=== PATIENT | female | born 1930 | race Caucasian/White ===

== ENCOUNTER 2017-08-27 19:28 | Emergency (ER) | payer MEDICARE, OTHER ==
[~2017-08-27 19:28] MED LIST: Donnatal Elixir 16.2 MG/5 ML UDCUP ONE
[2017-08-27] MEDS ORDERED: Donnatal Elixir 16.2 MG/5 ML UDCUP ONE (20:12)
[2017-08-27] MEDS ORDERED: Mag-Al Plus 1200 MG/1200 MG/120 MG/30 ML UDCUP ONE (20:12)
[2017-08-27] MEDS ORDERED: Lidocaine Viscous Sol 2% 15 ml UD Cup ONE (20:12)
[2017-08-27] MEDS ORDERED: Ondansetron HCl/PF 4 MG/2 ML Vial ONE (20:12)
[2017-08-27 20:17] LABS: #Basophils 0.1 thou/uL (0.0-0.2); #Eosinphils 0.1 thou/uL (0.0-0.7); #Lymphocytes 1.7 thou/uL (1.20-3.40); #Monocytes 0.6 thou/uL (0.11-0.59); #Neutrophils 4.8 thou/uL (1.40-6.50); %Basophils 1.5 % (0.0-1.0); %Lymphocytes 23.4 % (21.0-51.0); %Monocytes 8.1 % (0.0-10.0); %Neutrophils 65.9 % (42.0-75.0); Hemoglobin 12.6 g/dL (12.0-16.0); Mean Corpuscular HGB CONC 33.2 g/dL (32.0-36.0); Mean Corpuscular Hemoglobin 30.4 pg (27.0-31.0); Mean Corpuscular Volume 91.6 fl (81.0-99.0); Mean Platelet Volume 7.8 fL (7.4-10.4); Platelet Count 207 thou/uL (130-400); Red Blood Cell (RBC) Count 4.14 mill/uL (4.20-5.40); White Blood Cell (WBC) Count 7.2 thou/uL (4.8-10.8)
--- NOTE | 2017-08-27 20:19 | RAD ---
EXAM: ONE VIEW CHEST 08/27/17 COMPARISON: 07/24/16, 09/13/16 HISTORY: Chest pain. FINDINGS: There are sternotomy wires. Atherosclerosis of the aorta. Normal cardiac silhouette. Pulmonary vesse ls and hilum are normal. Costophrenic angles are clear. Hyperinflation, without consolidation or mas s. No pneumothorax or osseous abnormalities. IMPRESSION: 1. No acute cardiopulmonary process. 2. Hyperinflation. 3. Atherosclerosis. POS: [facility]
[2017-08-27 20:27] LABS: PTT 24.5 SEC (22.9-36.1); Prothrombin Time 13.4 SEC (12.0-14.7)
[2017-08-27 20:38] LABS: ALT (SGPT) 19 U/L (8-55); AST (SGOT) 26 U/L (5-34); Albumin 3.9 g/dL (3.4-4.8); Alkaline Phosphatase 79 U/L (40-150); Anion Gap 17 mmol/L (10-20); BUN (Urea Nitrogen) 25 mg/dL (9.8-20.1); Bilirubin, Total 0.3 mg/dL (0.2-1.2); CK (CPK) 31 U/L (29-168); Calc. Creatinine Clearance 0 mL/min (70-130); Calcium 8.8 mg/dL (7.8-10.44); Carbon Dioxide 24 mmol/L (23-31); Chloride 103 mmol/L (98-107); Estimated GFR-MDRD 61; Glucose 138 mg/dL (83-110); Magnesium 2.5 mg/dL (1.6-2.6); Potassium 4.5 mmol/L (3.5-5.1); Protein, Total 6.9 g/dL (6.0-8.3); Sodium 139 mmol/L (136-145)
[2017-08-27 20:39] LABS: CKMB 1.2 ng/mL (0-6.6); Troponin I 0.011 ng/mL (< 0.028)
[2017-08-27 20:50] LABS: Bacteria/HPF None Seen HPF (None Seen); Bilirubin Negative (Negative); Blood, Urine Negative (Negative); Clarity Clear (Clear); Glucose, Urine (Dipstick) Negative (Negative); Leukocyte Negative (Negative); Nitrite Negative (Negative); Protein, Urine (Dipstick) Negative (Neg-Trace); RBC/HPF 0-3 HPF (0-3); Squamous Epithelial None Seen HPF (0-3); Urobilinogen 0.2 mg/dL (0.2-1.0); WBC/HPF None Seen HPF (0-3); pH, Urine 6.5 (5.0-9.0)
[2017-08-27] MEDS ORDERED: Lorazepam 2 MG/ML VIAL ONE (21:44)
[2017-08-27] MEDS ORDERED: Pantoprazole 40 MG VIAL ONE (21:50)
[2017-08-27] MEDS ORDERED: Ondansetron ODT 4 MG TAB ONE (22:27)
== END 2017-08-27 22:01 | disposition home or self-care (01) ==
LOC: MADERS 19:28
DX: K21.0 Gastro-esophageal reflux disease with esophagitis (principal); F41.9 Anxiety disorder, unspecified; E78.5 Hyperlipidemia, unspecified; G30.9 Alzheimer's disease, unspecified; F02.80 Dementia in other diseases classified elsewhere, unspecified severity, without behavioral disturbance, psychotic disturbance, mood disturbance, and anxiety; G45.9 Transient cerebral ischemic attack, unspecified; J45.909 Unspecified asthma, uncomplicated; E78.2 Mixed hyperlipidemia; I10 Essential (primary) hypertension; Z79.899 Other long term (current) drug therapy; Z79.82 Long term (current) use of aspirin
CPT/HCPCS: 71010; 80053; 81001; 82550; 82553; 83735; 83880; 84484; 85025; 85610; 85730; 87086; 93005; 94760; 96374; 96375; C9113; J2060; J2405; Q0162

== ENCOUNTER 2017-12-12 18:53 | Emergency (ER) | payer MEDICARE, OTHER ==
[2017-12-12 20:13] LABS: Bilirubin Negative (Negative); Blood, Urine Trace (Negative); Clarity Clear (Clear); Glucose, Urine (Dipstick) Negative (Negative); Leukocyte Negative (Negative); Nitrite Negative (Negative); Protein, Urine (Dipstick) Negative (Neg-Trace); Urobilinogen 0.2 mg/dL (0.2-1.0); pH, Urine 5.5 (5.0-9.0)
[2017-12-12 20:14] LABS: Eosinophils 4 % (0-10); Hemoglobin 13.4 g/dL (12.0-16.0); Lymphocytes 25 % (21-51); MDiff Complete? YES; Mean Corpuscular HGB CONC 31.9 g/dL (32.0-36.0); Mean Platelet Volume 7.7 fL (7.4-10.4); Monocytes 4 % (0-10); Neutrophil 67 % (42-75); PLT Morphology Comment Appears Adequate; Platelet Count 152 thou/uL (130-400); RBC Distribution Width 12.2 % (11.5-14.5); Red Blood Cell (RBC) Count 4.47 mill/uL (4.20-5.40); White Blood Cell (WBC) Count 6.6 thou/uL (4.8-10.8)
[2017-12-12 20:15] LABS: ALT (SGPT) 13 U/L (8-55); AST (SGOT) 18 U/L (5-34); Albumin 3.8 g/dL (3.4-4.8); Alkaline Phosphatase 81 U/L (40-150); Anion Gap 19 mmol/L (10-20); BUN (Urea Nitrogen) 12 mg/dL (9.8-20.1); Bilirubin, Total 0.4 mg/dL (0.2-1.2); Calc. Creatinine Clearance 0 mL/min (70-130); Calcium 9.4 mg/dL (7.8-10.44); Carbon Dioxide 24 mmol/L (23-31); Chloride 102 mmol/L (98-107); Estimated GFR-MDRD 58; Globulin 2.9 g/dL (2.4-3.5); Glucose 104 mg/dL (83-110); Lipase 12 U/L (8-78); Potassium 3.9 mmol/L (3.5-5.1); Protein, Total 6.7 g/dL (6.0-8.3); Sodium 141 mmol/L (136-145)
[2017-12-12 20:16] LABS: Bacteria/HPF Rare-Few HPF (None Seen); RBC/HPF 0-3 HPF (0-3); Squamous Epithelial 0-3 HPF (0-3); WBC/HPF None Seen HPF (0-3)
[2017-12-12 20:17] LABS: CKMB 0.9 ng/mL (0-6.6); Troponin I Less than 0.010 ng/mL (< 0.028)
[2017-12-12 20:32] LABS: INR-International Normal Ratio 0.9; Prothrombin Time 12.7 SEC (12.0-14.7)
--- NOTE | 2017-12-12 20:34 | RAD ---
PORTABLE AP CHEST RADIOGRAPH: Date: 12-12-17 History: Pain under right breast for four days. Comparison: 08-27-17 FINDINGS: Post-surgical changes related to median sternotomy are again present. Lungs are hyperexpanded. There is evidence of prior granulomatous disease. Lungs are otherwise clear. Vascular calcification is seen in the thoracic aorta. Chest is unchanged from prior exam. IMPRESSION: Stable chest without evidence of an acute cardiopulmonary process. POS: [facility]
--- NOTE | 2017-12-13 07:26 | CT ---
NONCONTRAST CT ABDOMEN AND PELVIS: DATE: 12/15/17. HISTORY: Right lower quadrant abdominal pain. COMPARISON: None available. FINDINGS: There is partial visualization of median sternotomy wires. Vascular calcifications are seen in the abdominal aorta and involving the iliac arteries. The lung bases are clear. Degenerative changes are present in the spine. There is an 11 mm low-density lesion in the superior pole left kidney which is difficult to further c haracterize on this nonenhanced CT scan exam. No renal or ureteral calculi are seen bilaterally, and there is no evidence of hydronephrosis. Urinary bladder is distended and has a normal nonenhanced C T appearance. Splenic granulomata are present. The liver, pancreas, and bilateral adrenal glands demonstrate a grossly normal nonenhanced CT appeara nce. There is increased density seen in a few distal loops of small bowel probably related to ingested mat erial. The appendix is not visualized on this examination, but no secondary signs are seen to suggest append icitis. A few colonic diverticula are seen. No free fluid or fluid collection is seen in the abdomen or pelvis. Heterotopic ossification is seen medial to the proximal left femur. IMPRESSION: 1. Difficult to characterize 11 mm hypodense lesion superior pole left kidney. Nonemergent renal ul trasound may be helpful for further characterization. 2. No renal or ureteral calculi are seen bilaterally, and there is no hydronephrosis. 3. The appendix is not visualized, but there are no secondary signs to suggest appendicitis. POS: [facility]
== END 2017-12-12 21:45 | disposition home or self-care (01) ==
LOC: MADERS 18:53
DX: N28.9 Disorder of kidney and ureter, unspecified (principal); K21.9 Gastro-esophageal reflux disease without esophagitis; E78.5 Hyperlipidemia, unspecified; G30.9 Alzheimer's disease, unspecified; F02.80 Dementia in other diseases classified elsewhere, unspecified severity, without behavioral disturbance, psychotic disturbance, mood disturbance, and anxiety; E78.1 Pure hyperglyceridemia; F41.9 Anxiety disorder, unspecified; F32.9 Major depressive disorder, single episode, unspecified; Z86.73 Personal history of transient ischemic attack (TIA), and cerebral infarction without residual deficits
CPT/HCPCS: 36415; 51701; 71045; 74176; 80053; 81003; 81015; 82553; 83690; 84484; 85025; 85610; 85730; 93005; 94760; A4353

== ENCOUNTER 2017-12-14 15:31 | Emergency (ER) | payer MEDICARE, OTHER ==
--- NOTE | 2017-12-14 15:52 | CT ---
CT HEAD NONCONTRAST 12/14/17 HISTORY: Weakness. Location not distinguished. FINDINGS: There is no evidence of acute intracranial hemorrhage or infarct. Mild chronic ischemic small vessel disease and diffuse cortical atrophy are again demonstrated There is no mass effect or shift of midli ne structures. Ventricles appear normal in size, shape and position. IMPRESSION: Chronic type findings are stable. No acute intracranial abnormalities are demonstrated on noncontrast CT head. POS: [facility]
[2017-12-14 15:59] LABS: #Basophils 0.1 thou/uL (0.0-0.2); #Eosinphils 0.1 thou/uL (0.0-0.7); #Lymphocytes 1.2 thou/uL (1.20-3.40); #Monocytes 0.8 thou/uL (0.11-0.59); #Neutrophils 6.4 thou/uL (1.40-6.50); %Basophils 1.1 % (0.0-1.0); %Eosinophils 1.6 % (0.0-10.0); %Lymphocytes 13.9 % (21.0-51.0); %Neutrophils 74.5 % (42.0-75.0); Hemoglobin 13.8 g/dL (12.0-16.0); Mean Corpuscular HGB CONC 31.6 g/dL (32.0-36.0); Mean Corpuscular Hemoglobin 29.8 pg (27.0-31.0); Mean Corpuscular Volume 94.4 fl (81.0-99.0); Mean Platelet Volume 7.7 fL (7.4-10.4); Platelet Count 217 thou/uL (130-400); RBC Distribution Width 12.7 % (11.5-14.5); Red Blood Cell (RBC) Count 4.64 mill/uL (4.20-5.40); White Blood Cell (WBC) Count 8.6 thou/uL (4.8-10.8)
[2017-12-14 16:21] LABS: ALT (SGPT) 12 U/L (8-55); AST (SGOT) 17 U/L (5-34); Albumin 3.6 g/dL (3.4-4.8); Alkaline Phosphatase 82 U/L (40-150); Anion Gap 15 mmol/L (10-20); BUN (Urea Nitrogen) 13 mg/dL (9.8-20.1); Bilirubin, Total 0.3 mg/dL (0.2-1.2); Calc. Creatinine Clearance 0 mL/min (70-130); Calcium 9.1 mg/dL (7.8-10.44); Carbon Dioxide 25 mmol/L (23-31); Chloride 106 mmol/L (98-107); Estimated GFR-MDRD 58; Globulin 2.9 g/dL (2.4-3.5); Glucose 141 mg/dL (83-110); Potassium 4.3 mmol/L (3.5-5.1); Protein, Total 6.5 g/dL (6.0-8.3); Sodium 142 mmol/L (136-145)
[2017-12-14 16:29] LABS: CKMB 1.2 ng/mL (0-6.6)
[2017-12-14 16:30] LABS: Troponin I Less than 0.010 ng/mL (< 0.028)
[2017-12-14] MEDS ORDERED: Aspirin 325 MG TAB ONE (16:40)
== END 2017-12-14 17:13 | disposition short-term general hospital (02) ==
LOC: MADERS 15:31
DX: R53.1 Weakness (principal); K21.9 Gastro-esophageal reflux disease without esophagitis; I10 Essential (primary) hypertension; G30.9 Alzheimer's disease, unspecified; F02.80 Dementia in other diseases classified elsewhere, unspecified severity, without behavioral disturbance, psychotic disturbance, mood disturbance, and anxiety; E78.5 Hyperlipidemia, unspecified; E78.1 Pure hyperglyceridemia; F41.9 Anxiety disorder, unspecified; F32.9 Major depressive disorder, single episode, unspecified; Z86.73 Personal history of transient ischemic attack (TIA), and cerebral infarction without residual deficits
CPT/HCPCS: 36415; 36416; 70450; 80053; 82553; 84484; 85025; 93005; 94760

== ENCOUNTER 2017-12-19 21:54 | Inpatient (IN) | payer MEDICARE ==
[2017-12-19] MEDS ORDERED: Pantoprazole 40 MG VIAL ONE (22:11)
--- NOTE | 2017-12-19 22:45 | RAD ---
PORTABLE CHEST: Date: 12-19-17 Provided Clinical History: Altered mental status. Comparison: 12-12-17 FINDINGS: Cardiac and mediastinal silhouette is unchanged in appearance. Median sternotomy changes are again se en. No focal consolidation, pleural fluid, or pneumothorax apparent. IMPRESSION: No evidence for an acute cardiopulmonary process. POS: [facility]
[2017-12-19 22:57] LABS: #Basophils 0.1 thou/uL (0.0-0.2); #Lymphocytes 0.4 thou/uL (1.20-3.40); #Monocytes 0.4 thou/uL (0.11-0.59); #Neutrophils 9.9 thou/uL (1.40-6.50); %Basophils 0.9 % (0.0-1.0); %Eosinophils 0.1 % (0.0-10.0); %Lymphocytes 3.4 % (21.0-51.0); %Monocytes 3.6 % (0.0-10.0); Hemoglobin 13.2 g/dL (12.0-16.0); Mean Corpuscular HGB CONC 32.2 g/dL (32.0-36.0); Mean Corpuscular Hemoglobin 30.6 pg (27.0-31.0); Mean Corpuscular Volume 94.9 fl (81.0-99.0); Platelet Count 208 thou/uL (130-400); RBC Distribution Width 12.7 % (11.5-14.5); Red Blood Cell (RBC) Count 4.33 mill/uL (4.20-5.40); White Blood Cell (WBC) Count 10.7 thou/uL (4.8-10.8)
[2017-12-19 23:19] LABS: ALT (SGPT) 9 U/L (8-55); AST (SGOT) 16 U/L (5-34); Albumin 3.5 g/dL (3.4-4.8); Alkaline Phosphatase 72 U/L (40-150); Anion Gap 18 mmol/L (10-20); BUN (Urea Nitrogen) 14 mg/dL (9.8-20.1); Bilirubin, Total 0.5 mg/dL (0.2-1.2); CK (CPK) 34 U/L (29-168); Calc. Creatinine Clearance 0 mL/min (70-130); Calcium 8.6 mg/dL (7.8-10.44); Carbon Dioxide 20 mmol/L (23-31); Chloride 106 mmol/L (98-107); Estimated GFR-MDRD 70; Globulin 2.8 g/dL (2.4-3.5); Glucose 152 mg/dL (83-110); Lipase 8 U/L (8-78); Potassium 3.7 mmol/L (3.5-5.1); Protein, Total 6.3 g/dL (6.0-8.3); Sodium 140 mmol/L (136-145)
[2017-12-19 23:20] LABS: CKMB 1.1 ng/mL (0-6.6); Troponin I Less than 0.010 ng/mL (< 0.028)
[2017-12-19 23:37] LABS: Bilirubin Negative (Negative); Blood, Urine Negative (Negative); Clarity Clear (Clear); Glucose, Urine (Dipstick) Negative (Negative); Leukocyte Negative (Negative); Nitrite Negative (Negative); Protein, Urine (Dipstick) 30 mg/dL (Neg-Trace); Urobilinogen 0.2 mg/dL (0.2-1.0)
[2017-12-19 23:39] LABS: Specific Gravity, Urine 1.022 (1.002-1.036)
[2017-12-19 23:44] LABS: Bacteria/HPF None Seen HPF (None Seen); RBC/HPF 0-3 HPF (0-3); Squamous Epithelial 0-3 HPF (0-3)
[2017-12-20] MEDS ORDERED: Sodium Chloride 0.9% 1,000 ML IV SCH (00:56)
[2017-12-20] MEDS ORDERED: Ondansetron HCl/PF 4 MG/2 ML Vial SLOW IVP PRN (00:56)
[2017-12-20] MEDS ORDERED: Acetaminophen 325 MG TAB PO PRN ×2 (00:56→08:17)
[2017-12-20] MEDS ORDERED: Bisacodyl 5 MG TAB PO PRN (00:59)
[2017-12-20 04:17] VITALS: BMI 19.8
[2017-12-20] MEDS ORDERED: Sodium Chloride 0.9% 1,000 ML BAG ONE (07:39)
[2017-12-20] MEDS ORDERED: ALPRAZolam 0.25 MG TAB PO PRN ×2 (08:17→15:45)
[2017-12-20] MEDS ORDERED: Ondansetron ODT 4 MG TAB PO PRN (08:23)
[2017-12-20] MEDS ORDERED: Nitrofurantoin Monohyd/M-Cryst 100 MG CAP PO SCH (09:00)
--- NOTE | 2017-12-20 09:07 | HP ---
DATE OF ADMISSION: 12/20/2017 CHIEF COMPLAINT: Weakness, nausea and vomiting. PRESENT ILLNESS: The patient is an 87-year-old white female who lives at assisted living and is usua lly independent with her ADLs, but requires assistance with all her instrumental ADLs. She has a his tory of Alzheimer disease with psychotic behavioral issues. She also has a history of severe aortic stenosis for which she underwent a bioprosthetic valve replacement on 05/01/2012. She has a history of depression, hypertension and anxiety. 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 The patient underwent an MRI during that admission which showed a small area of acute infarct involving the right corpus callosum superimposed on chron ic ischemic disease. There were also multifocal small remote infarcts seen within the cerebellar he misphere compatible with remote lacunar infarct. Her carotid Doppler showed no evidence of significa nt stenosis and her echocardiogram showed normal functioning bioprosthetic valve with a normal ejecti on fraction. The patient was discharged on Plavix 75 mg daily. Her aspirin was stopped. The patien t was discharged to the assisted living on 12/16/2017. Since her stay at the [facility] living she did alright and then on the day of admission she became nauseated and had an episode of vomiting, seemed much more confused. This persisted and by the evening, she just had not eaten anything, she was wea ker, again attempted to vomit and was much more confused. The patient was brought to the emergency r oom where she was evaluated. There she was found to be very confused. She was afebrile. Blood pres sure was normal. Her lab showed an H&H of 13.2 and 41.1 with a white cell count of 10,700 with 92% s egs, 3% lymphocytes, and platelet count of 208. Her sodium was 140, potassium 3.7. Her BUN 14, crea tinine 0.78. Her glucose 152 nonfasting. Lactic acid 1.6, bilirubin 0.5, alkaline phosphatase 72, C K-MB 1.1, troponin I less than 0.01, albumin 3.5. Liver studies normal. Lipase 8. TSH 0.75. Urine shows specific gravity 1.022. Urine nitrite negative, RBCs 0-3, WBCs 4-6. The patient was admitted to the hospital with the diagnosis of nausea and vomiting and mild dehydration. The patient was sta rted on IV fluids and on antibiotics for a potential of urinary tract infection. The patient though was having no subjective symptoms of UTI. During her stay in the hospital the patient was very confu sed and took out her IV and refused any medication. The patient was seen early on the morning of 12/20/2017. The patient was confused, but did recognize me, but did not know the reason she was in the hospital. At present she said she was doing okay and just wanted to go home. The patient did not remember the vomiting. Presently, she has not complain ed of any pain. 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 See present illness. The patient was h ospitalized in 09/2014 for pneumonia. The patient has a history of severe aortic stenosis for which she underwent a bioprosthetic aortic valve replacement on 05/01/2012. The patient has hypercholester olemia, irritable bowel syndrome, depression, anxiety, gastroesophageal reflux disease, Alzheimer dem entia, complicated by psychotic features, hypertension, diverticular disease of the colon seen on col onoscopy in 08/2011. The patient has had a cholecystectomy and a hysterectomy. PRESENT MEDICATIONS: Plavix 75 mg daily, alprazolam 0.125 mg daily as needed, venlafaxine XR 37.5 mg at bedtime, pantoprazole 40 mg daily, acetaminophen 325 mg 2 every 4 hours as needed, Megace 40 mg p er mL, 2.5 mg b.i.d., amlodipine 5 mg daily, mirtazapine 30 mg at bedtime, Exelon patch 9.5 mg daily, risperidone 0.25 mg daily. ALLERGIES: CODEINE, CORTICOSTEROIDS, LEVOFLOXACIN, CELEBREX, TETRACYCLINE, LIPITOR, ERYTHROMYCIN, an d OMNICEF. REVIEW OF SYSTEMS: The patient has not had any recent fever. She has had no recent weight gain or l oss. HEAD AND NECK: Historically, the patient has had trouble off and on with headaches, presently no com plaint. PULMONARY: No shortness of breath. CARDIOVASCULAR: No complaints. GASTROINTESTINAL: See present illness. The patient was reported to have some loose stools yesterday . NEURO/PSYCHIATRIC: The patient has very poor short term memory, gets very anxious easily. ADLs: Th e patient is independent of her ADLs. The patient requires someone to take care of all her instrumen sahra ADLs. SOCIAL HISTORY: The patient is , second marriage. First years ago. Patient res ides in an assisted living. CODE STATUS: Full code. PHYSICAL EXAMINATION: GENERAL: Shows an 87-year-old white female who is lying in bed. She is alert, talkative, a little a nxious, not really sure of where she is. VITAL SIGNS: Shows a temperature of 97.1, pulse 75, respirations 18, O2 sat 96%, blood pressure 141/ 65. Her weight is 105. HEAD: Normocephalic and atraumatic. EARS: TM on the left, clear. Right TM obscured by some cerumen. NOSE: Normal. MOUTH AND THROAT: Normal. NECK: Carotids are equal and strong, no bruits. Thyroid not enlarged. LUNGS: Clear. HEART: Regular rate. The patient has a little blowing murmur 3/6 that is systolic heard at the apex of the heart and also a mild ejection murmur 2/6 heard over the aortic area. ABDOMEN: Scaphoid with no organomegaly, nor areas of tenderness. EXTREMITIES: No edema. NEUROLOGIC: The patient is alert and recognizes me, but could not remember my name, but upon prompti ng remembered me as her physician. The patient is disoriented to time and place and situation. Her cranial nerves II-XII were intact. The patient's muscle strength; she has a very mild left-sided wea kness. IMPRESSION: 1. Nausea and vomiting. A. Complicated by mild dehydration. B. Etiology secondary to effect of medication, possibly the Plavix which is new versus gastroenteriti s. 2. 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 A. Required hospitalization at [facility] from 12/14/2017-12/16/2017, presenting with left-s ided weakness and slurred speech. 3. Cerebrovascular disease. A. History of acute infarct involving the right corpus callosum 12/14/2017. B. MRI showed evidence of chronic ischemic disease. C. MRI showed multifocal small remote infarcts in the cerebellar region from lacunar infarcts. 4. Severe aortic stenosis. A. Status post aortic valve replacement with a bioprosthetic valve on 05/01/2012. B. Echocardiogram on 12/15/2017 showed good function of the valve with normal ejection fraction. 5. Alzheimer disease. A. Complicated by psychotic behavioral disorder, stable. 67. Depression and anxiety. PLAN: The patient has removed her IV, but has received fluids that may have corrected the mild dehyd ration. We will see how she does on her oral nutritional and fluid intake. We will have physical erapy evaluate the patient and worked with her. We will continue her routine medicines. I have just started her on the pantoprazole in the event there is any irritation to the lining of the stomach. We will give Plavix with food. Continue her routine medication.
[2017-12-20] MEDS: risperiDONE 0.5 MG TAB PO SCH (09:10)
[2017-12-20] MEDS: Rivastigmine 9.5mg/24 Hour PATCH TOP SCH (09:11)
[2017-12-20] MEDS: Amlodipine 5 MG TAB PO SCH (09:11)
[2017-12-20] MEDS ORDERED: ALPRAZolam 0.25 MG TAB PO SCH (15:45)
[2017-12-20] MEDS ORDERED: Venlafaxine XR 37.5 MG CAP PO SCH (21:00)
[2017-12-20] MEDS ORDERED: Mirtazapine 15 MG TAB PO SCH (21:00)
[2017-12-20] MEDS ORDERED: Pantoprazole 40 MG VIAL IVP SCH (21:00)
[2017-12-21] MEDS ORDERED: Clopidogrel Bisulfate 75 MG TAB PO SCH (08:00)
[2017-12-21 08:13] VITALS: BP 129/60; TEMP 98.7
[2017-12-21] MEDS: Amlodipine 5 MG TAB PO SCH (09:21)
[2017-12-21] MEDS: Rivastigmine 9.5mg/24 Hour PATCH TOP SCH (09:21)
[2017-12-21] MEDS: risperiDONE 0.5 MG TAB PO SCH (09:22)
--- NOTE | 2017-12-21 11:13 | DIS ---
DATE OF ADMISSION: 12/20/2017 DATE OF DISCHARGE: 12/21/2017 FINAL DIAGNOSES: 1. Nausea and vomiting. A. Complicated by mild dehydration. B. Etiology secondary to effect of medication, possibly the Plavix which is new versus gastroente ritis. C. Resolution of the nausea and vomiting and mild dehydration. 2. 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 A. Required hospitalization at [facility] from 12/14/2017-12/16/2017, presenting with le ft-sided weakness and slurred speech. B. Complicated by very mild left-sided weakness. The patient is still ambulating independently and transferring independently. 3. Cerebrovascular disease. A. History of acute infarct involving the right corpus callosum 12/14/2017. B. MRI showed evidence of chronic ischemic disease. C. MRI showed multifocal small remote infarcts in the cerebellar region from lacunar infarcts. 4. Severe aortic stenosis. A. Status post aortic valve replacement with a bioprosthetic valve on 05/01/2012. B. Echocardiogram on 12/15/2017 showed good function of the valve with normal ejection fraction. 5. Alzheimer disease. A. Complicated by psychotic behavioral disorder, stable. 6. Depression and anxiety. HOSPITAL COURSE: The patient is an 87-year-old white female who resides in assisted living. She is independent with her ADLs, but requires someone to manage all her instrumental ADLs. She has a histo ry of Alzheimer's disease complicated by some psychotic behavioral disorders that have been reasonabl y managed with Risperdal and redirection. She has a history of severe aortic stenosis for which she has undergone a bioprosthetic valve replacement in 04/2012. She has a history of hypertension, depre ssion, and anxiety. The patient was hospitalized at [facility] from 12/14/2017-12/16/2017 for new onset of left-sided weakness and slurred speech and increased confusion. MRI showed evidenc e of a small area of acute infarct involving the right corpus callosum superimposed on chronic ischem ic disease with evidence of old multifocal small remote infarcts in the cerebellum. The patient was discharged back to her assisted living on Plavix. Her aspirin was stopped and she was continued on h er routine medication[facility] she seemed more confused and was nauseated intermittentl y. The patient's nausea persisted and she began vomiting on 12/19/2017. Because of the persistence with vomiting, nausea, and confusion, she was sent back to the emergency room on the evening of 12/19. There she was evaluated and found to be very mildly dehydrated. The patient was admitted to [facility] on the freight rate clerk of 12/20/2017, because of the nausea and vomiting and very mild dehy dration. The source of the nausea and vomiting was thought to possibly be related to the new medicat ion, the Plavix, or possibly a gastroenteritis. She was started on IV fluids, but during the early m orning hours, she pulled the IV out and refused to have this continued. She was seen early on the mo rning of 12/20/2017. She was confused, which is her baseline, has poor short term memory and did not understand where she was or why she was here, she just wanted to go back to her home. She denied an y nausea or abdominal pain. Her exam just showed the patient was a little anxious. Her neurologic e xam showed that she had a very mild left-sided weakness and decided to continue to just observe the p atient today and leave the IV out since her lab work looked fine and looked like the mild dehydration had resolved. She was tolerating the diet and physical therapy was ordered to ensure that she could safely ambulate and transfer. Patient was up and walking on her own throughout the day and at that time was a little anxious, because she just did not understand what was going on. She did require ex tra doses of alprazolam 0.25 mg on the afternoon, just helps her settle down. She did best when her was with her. He was able to help calm her and settle her. She had no more nausea, vomiting , and was eating well. Her vital signs remained stable. On the morning of 12/21/2017, she was resti ng well, was awake and alert, but was tired and sleeping. She had the very mild left-sided weakness, but in spite of that weakness, she was able to ambulate and transfer independently. It was felt idris t the patient's nausea and vomiting have resolved, the etiology of this may have been a gastroenterit is or effect of the new medicine, the Plavix. This medicine was given with food and she was on panto prazole and she had had no more nausea or vomiting and no diarrhea. It is felt that the patient woul d probably do best back at her usual environment. Her mental status was back to her usual baseline. The patient was discharged back to the assisted living in [place]. DISPOSITION: DIET: Regular diet. No added salt. ACTIVITIES: Ambulate as tolerated. MEDICATIONS: Acetaminophen 325 mg 2 every 4 hours as needed, alprazolam 0.125 mg daily p.r.n., amlod ipine 5 mg daily, Plavix 75 mg daily with meals, mirtazapine 30 mg at bedtime, pantoprazole 40 mg sanchez ly, ondansetron oral disintegrating tablets 4 mg every 6 hours if needed for nausea, risperidone 0.25 mg daily, Exelon patch 9.5 mg daily, venlafaxine XR 37.5 mg daily. FOLLOW UP: Arrangements for home health to see patient and arranging home physical therapy. We will see the patient followup in my office in 2 weeks unless there is interval problem. CODE STATUS: FULL CODE.
== END 2017-12-21 10:05 | disposition home or self-care (01) | DRG 641 ==
LOC: MADERS 21:54 → MADMS 12-20 00:06
PROVIDERS: ADMIT Family Medicine; ATTEND Family Medicine
DX: E86.0 Dehydration (principal); K52.9 Noninfective gastroenteritis and colitis, unspecified; I69.354 Hemiplegia and hemiparesis following cerebral infarction affecting left non-dominant side; G30.9 Alzheimer's disease, unspecified; F02.81 Dementia in other diseases classified elsewhere, unspecified severity, with behavioral disturbance; I10 Essential (primary) hypertension; I35.0 Nonrheumatic aortic (valve) stenosis; F32.9 Major depressive disorder, single episode, unspecified; F41.9 Anxiety disorder, unspecified; Z88.1 Allergy status to other antibiotic agents; Z88.5 Allergy status to narcotic agent; Z88.8 Allergy status to other drugs, medicaments and biological substances; Z95.3 Presence of xenogenic heart valve; T45.525A Adverse effect of antithrombotic drugs, initial encounter
CPT/HCPCS: 36415; 71045; 80053; 81003; 81015; 82150; 82553; 83605; 83690; 84443; 84484; 85025; 85652; 87040; 87086; 93005; 96361; 96374; C9113; J7050; Q0162

== ENCOUNTER 2018-02-13 11:04 | Emergency (ER) | payer MEDICARE ==
[2018-02-13 12:21] LABS: Bilirubin Negative (Negative); Blood, Urine Negative (Negative); Clarity Clear (Clear); Glucose, Urine (Dipstick) Negative (Negative); Leukocyte Small (Negative); Nitrite Negative (Negative); Protein, Urine (Dipstick) Negative (Neg-Trace); Urobilinogen 0.2 mg/dL (0.2-1.0)
[2018-02-13 12:24] LABS: RBC/HPF 0-3 HPF (0-3)
[2018-02-13 12:25] LABS: ALT (SGPT) 11 U/L (8-55); AST (SGOT) 18 U/L (5-34); Albumin 4.4 g/dL (3.4-4.8); Alkaline Phosphatase 80 U/L (40-150); Anion Gap 18 mmol/L (10-20); BUN (Urea Nitrogen) 11 mg/dL (9.8-20.1); Bilirubin, Total 0.5 mg/dL (0.2-1.2); Calc. Creatinine Clearance 0 mL/min (70-130); Calcium 9.9 mg/dL (7.8-10.44); Carbon Dioxide 25 mmol/L (23-31); Estimated GFR-MDRD 68; Glucose 104 mg/dL (83-110); Protein, Total 7.4 g/dL (6.0-8.3)
[2018-02-13 12:25] LABS: Bacteria/HPF Rare-Few HPF (None Seen); Squamous Epithelial 0-3 HPF (0-3)
[2018-02-13 12:36] LABS: White Blood Cell (WBC) Count 7.4 thou/uL (4.8-10.8)
[2018-02-13 12:37] LABS: %Basophils 0.7 % (0.0-1.0); %Eosinophils 0.6 % (0.0-10.0); %Monocytes 7.4 % (0.0-10.0); %Neutrophils 77.3 % (42.0-75.0); Hemoglobin 13.7 g/dL (12.0-16.0); Mean Corpuscular HGB CONC 33.1 g/dL (32.0-36.0); Mean Corpuscular Hemoglobin 30.8 pg (27.0-31.0); Mean Corpuscular Volume 92.9 fL (81.0-99.0); Mean Platelet Volume 6.7 fL (7.4-10.4); Platelet Count 286 thou/uL (130-400); RBC Distribution Width 12.5 % (11.5-14.5); Red Blood Cell (RBC) Count 4.45 mill/uL (4.20-5.40)
[2018-02-13 12:38] LABS: #Monocytes 0.5 thou/uL (0.11-0.59); #Neutrophils 5.7 thou/uL (1.40-6.50)
[2018-02-13 12:45] LABS: Potassium 4.1 mmol/L (3.5-5.1)
[2018-02-13 12:47] LABS: Sodium 142 mmol/L (136-145)
[2018-02-13 12:48] LABS: Chloride 103 mmol/L (98-107)
[2018-02-13] MEDS ORDERED: Sulfameth/Trimethoprim DS 800-160mg TAB ONE (12:52)
== END 2018-02-13 12:54 | disposition home or self-care (01) ==
LOC: MADERS 11:04
DX: N39.0 Urinary tract infection, site not specified (principal); R41.82 Altered mental status, unspecified; E78.5 Hyperlipidemia, unspecified; I10 Essential (primary) hypertension; G30.9 Alzheimer's disease, unspecified; F02.80 Dementia in other diseases classified elsewhere, unspecified severity, without behavioral disturbance, psychotic disturbance, mood disturbance, and anxiety; J45.909 Unspecified asthma, uncomplicated; K58.9 Irritable bowel syndrome, unspecified; E78.1 Pure hyperglyceridemia; F41.9 Anxiety disorder, unspecified; K21.9 Gastro-esophageal reflux disease without esophagitis; F32.9 Major depressive disorder, single episode, unspecified; I35.0 Nonrheumatic aortic (valve) stenosis; Z86.73 Personal history of transient ischemic attack (TIA), and cerebral infarction without residual deficits; Z79.899 Other long term (current) drug therapy
CPT/HCPCS: 36415; 80053; 81003; 81015; 85025; 87086; 99284